=== PATIENT | male | born 1995 | race Caucasian/White ===

== ENCOUNTER 2018-06-29 01:47 | Emergency (ER) | payer OTHER ==
--- NOTE | 2018-06-29 01:55 | EDPHY ---
H & P Stated Complaint: ETOH, Fell, hit head Time Seen by Provider: 06/29/18 01:54 HPI/ROS: Chief Complaint: Alcohol intoxication HPI: 22-year-old male fell down after drinking multiple beers tonight. He did hit his head. No loss of consciousness. He is awake alert. Denies any trauma. Denies past medical history. He is currently without complaint. ROS: 10 systems were reviewed and were negative except those elements noted in the HPI. PMH: Denies Social History: No smoking, occasional heavy alcohol, no recreational drug use Family History: non-contributory Physical Exam: Gen: Awake, Alert, slurred speech, smells strongly of alcohol HEENT: Head: Atraumatic Eyes: PERRLA, EOMI Ears: No hemotympanum Nose: No epistaxis Mouth: Normal dentition, Airway patent Face: No deformity Neck: non-tender, no stepoff, Full ROM without pain Chest: non-tender, lungs CTA Heart: normal heart tones Abd: soft, non-tender, atraumatic Pelvis: non-tender, stable to AP and Lateral compression Back: atraumatic, no midline tenderness Ext: atramatic, full ROM Skin: no rash Neuro: CN II-XII intact, Strength 5/5 in all extremities, sensation intact in all extremities - Personal History Current Tetanus Diphtheria and Acellular Pertussis (TDAP): Yes - Medical/Surgical History Hx Asthma: No Hx Chronic Respiratory Disease: No Hx Diabetes: No Hx Cardiac Disease: No Hx Renal Disease: No Hx Cirrhosis: No Hx Alcoholism: No Hx HIV/AIDS: No Hx Splenectomy or Spleen Trauma: No Other PMH: Denies - Social History Smoking Status: Never smoked Constitutional: Initial Vital Signs Temperature (C) 36.8 C 06/29/18 01:50 Heart Rate 109 H 06/29/18 01:50 Respiratory Rate 18 06/29/18 01:50 Blood Pressure 122/61 H 06/29/18 01:50 O2 Sat (%) 93 06/29/18 01:50 O2 Delivery Mode Room Air Allergies/Adverse Reactions: amoxicillin Allergy (Verified 06/29/18 01:50) Penicillins Allergy (Verified 06/29/18 01:50) Home Medications: Medication Instructions Recorded NK [No Known Home Meds] 06/29/18 Medical Decision Making ED Course/Re-evaluation: Patient is now awake and appropriate. Ambulating unassisted to the bathroom. No current complaints. Patient is tolerating oral fluids. Patient is ready for discharge with sober ride. Departure - Departure Disposition: Home, Routine, Self-Care Clinical Impression: Alcoholic intoxication Condition: Good Instructions: Alcohol Intoxication (ED) Referrals: Patient,NotPresent [Primary Care Provider] - As per Instructions
[2018-06-29 02:16] VITALS: BP 117/75
== END 2018-06-29 02:16 | disposition home or self-care (01) ==
DX: F10.920 Alcohol use, unspecified with intoxication, uncomplicated (principal); W19.XXXA Unspecified fall, initial encounter